=== PATIENT | male | born 1990 ===

== ENCOUNTER 2020-11-20 18:07 | Emergency (ER) | payer OTHER ==
[~2020-11-20] VITALS: Ht 170.2 cm; Wt 64.1 kg
[2020-11-20 21:13] VITALS: BP 118/81
== END 2020-11-20 21:15 | disposition home or self-care (01) ==
LOC: ER 18:07
DX: S01.511A Laceration without foreign body of lip, initial encounter (principal); X58.XXXA Exposure to other specified factors, initial encounter; Y93.89 Activity, other specified; Y92.89 Other specified places as the place of occurrence of the external cause; Y99.8 Other external cause status
CPT/HCPCS: 99281